=== PATIENT | male | born 1975 | race African-American/Black ===

== ENCOUNTER 2022-01-11 13:57 | Emergency (ER) | payer SELFPAY ==
[~2022-01-11] VITALS: Ht 175.3 cm; Wt 92.1 kg
[2022-01-11] MEDS ORDERED: IBUPROFEN 600 MG TAB PO STA (14:43)
[2022-01-11] MEDS ORDERED: ONDANSETRON HCL 4 MG ORAL DISINTEGRATING TAB PO ONE (14:45)
[2022-01-11] MEDS ORDERED: ONDANSETRON ODT4 MG PO (14:53)
[2022-01-11] MEDS ORDERED: IBUPROFEN800 MG PO (14:53)
[2022-01-11] MEDS ORDERED: FLONASE ALLERG9.9 ML INH (14:53)
== END 2022-01-11 16:30 | disposition home or self-care (01) ==
LOC: ER 16:02
DX: R50.9 Fever, unspecified (principal); J11.1 Influenza due to unidentified influenza virus with other respiratory manifestations; R11.2 Nausea with vomiting, unspecified
CPT/HCPCS: 99282